=== PATIENT | male | born 1960 | race African-American/Black ===

== ENCOUNTER 2019-08-22 11:16 | Inpatient (IN) ==
[2019-08-22] MEDS ORDERED: ZOFRAN IV PRN (12:40)
[2019-08-22] MEDS ORDERED: TYLENOL PO PRN (12:40)
[2019-08-22] MEDS ORDERED: MORPHINE IV PRN (12:52)
[2019-08-22 13:38] LABS: BASO# 0.03 X1000 (0.0-0.2); BASO% 0.4 % (0.0-0.8); EOS# 0.05 X1000 (0.0-0.7); EOS% 0.6 % (0.0-10.0); HEMATOCRIT 42.9 % (42.0-52.0); HEMOGLOBIN 14.2 g/dL (14.0-18.0); IMM GRAN# 0.02 X1000 (0.0-0.04); IMM GRAN% 0.3 % (0.0-0.5); LYMPH# 2.26 X1000 (1.2-3.4); LYMPH% 28.6 % (20.5-51.1); MCH 33.3 PG (27-31); MCHC 33.1 g/dL (33-37); MCV 100.7 FL (81-99); MONO# 0.84 X1000 (0.11-0.59); MONO% 10.6 % (1.7-9.3); MPV 10.4 FL (7.4-10.4); NEUT# 4.71 X1000 (1.4-6.5); NEUT% 59.5 % (42.2-75.2); PLT 213 X1000 (130-400); RBC 4.26 XMIL (4.7-6.1); RDW 13.8 % (11.5-14.5); WBC 7.91 X1000 (4.8-10.8)
[2019-08-22 13:54] LABS: AGAP 11; ALBUMIN 4.4 g/dL (3.5-5.0); ALKALINE PHOSPHATASE 106 U/L (32-122); BUN 14 mg/dL (8-22); CALCIUM 8.8 mg/dL (8.8-10.2); CHLORIDE 107 mmol/L (98-107); COSMO 282; CREATININE 1.1 mg/dL (0.7-1.2); ESTIMATED GFR > 60; GLUCOSE 103 mg/dL (70-104); GOT 19 U/L (10-34); GPT 20 U/L (10-44); POTASSIUM 4.2 mmol/L (3.5-5.1); SODIUM 141 mmol/L (136-145); TCO2 23 mmol/L (25-35); TOTAL BILIRUBIN 0.29 mg/dL (0.20-1.00); TOTAL PROTEIN 8.9 g/dL (6.3-8.3)
[2019-08-22] MEDS ORDERED: SODIUM CHLORIDE 0.9% INJ SCH (15:00)
--- NOTE | 2019-08-22 16:05 | HISTORY AND PHYSICAL ---
The patient came in for abdominal pain, nausea/vomiting, no bowel movement, possibly some hematochezia. It is really unclear. In any case, he was seen by Francy Muñoz as an outpatient, had abdominal pain, abdomen that was distended and hard with concern over peritoneal signs, and his plain films show possible small bowel obstruction. He was admitted for treatment. Unclear if he has had any abdominal surgeries, except it looks like he has prostate cancer, and he has had radiation therapy and it looks like he may have had urological treatment, as well. In any case, the patient will be admitted, hydrated, antiemetic. We are going to get a CT to evaluate for small bowel obstruction versus other etiology, and we will follow closely. Appreciate referral from Francy Muñoz. This patient was seen in conjunction with Adri Srinivasan. cc: Cj Corado MD
--- NOTE | 2019-08-22 16:49 | Diag Imaging Result Doc PS360 ---
EXAM: CT ABD/PELVIS W/ORAL CONT ONLY HISTORY: sbo TECHNIQUE: CT abdomen and pelvis without intravenous contrast. COMPARISON: None. FINDINGS: The gallbladder has been removed. No focal hepatic abnormality identified on this noncontrasted exam. No splenomegaly. The left hemidiaphragm is elevated. Normal aorta. No inflammation about the pancreas. Normal adrenal glands. Small nonobstructing right lower pole renal stone. Mild to moderately dilated left renal pelvis and calyces. There is a right renal cyst. There are contrast has passed through the small bowel and entered the colon. There is a large amount of stool within the colon. The descending colon is also distended with air. Maximum diameter is 6 cm. The urinary bladder is distended and has thickening to the wall. No abscess. IMPRESSION: 1.Prominent constipation. No bowel obstruction. 2.Cholecystectomy 3.Nonobstructing right renal stone 4.Cystitis 5.Possible left ureteropelvic junction obstruction. This exam was performed using automated exposure control, adjustment of mA or kV according to patient size, and/or use of iterative reconstruction technique. Electronically signed by Kurt Farnsworth 08/22/2019 4:47 PM
[2019-08-22] MEDS: NS 1,000 ML IV SCH (17:02)
[2019-08-22] MEDS: PROTONIX IV SCH (17:02)
--- NOTE | 2019-08-22 18:30 | HISTORY AND PHYSICAL ---
PRIMARY CARE PHYSICIAN: BOB Mota. CHIEF COMPLAINT: Constipation. HISTORY OF PRESENTING ILLNESS: This is a 58-year-old male who resides in a local intermediate due to his intellectual disability. He was seen at his primary care physician's office today after having some hard bowel movements on Tuesday, and also had some bright red blood left on the toilet seat after the hard BM. The patient is only able to answer yes and no questions, but does confirm pain to abdomen with light palpation. He had an x-ray in the primary care physician's office today, and felt to possibly have a small bowel obstruction so he was admitted for further evaluation and treatment. PAST MEDICAL HISTORY: GERD, seizures, and intellectual disability. PAST SURGICAL HISTORY: None. FAMILY HISTORY: Reviewed and noncontributory. SOCIAL HISTORY: Currently, he resides in a local intermediate. Denies any tobacco, alcohol or illicit drug use. ALLERGIES: Penicillin. HOME MEDICATIONS: A current list will need to be obtained, reconciled, reviewed and then restarted as appropriate. We will place an order for nursing to update and confirm home medications. LABORATORY DATA: We are obtaining a CBC and BMP. CT of the abdomen and pelvis with and without contrast. We have consulted General Surgery. We will review those lab results when they have resulted. REVIEW OF SYSTEMS: Denied any fever, chills, blurred vision, dizziness, chest pain or cough. Denied any shortness of breath. He was positive for generalized abdominal pain, constipation, hematochezia, and denied any burning or hurting with urination. PHYSICAL EXAMINATION: On arrival, this is a 58-year-old male who answers yes and no questions appropriately. He does have a caregiver at the bedside, and we reviewed his medical record. HEENT: Normocephalic, atraumatic. Normal ENT inspection. Oropharynx and nares are clear. EYES: Pupils are equal, round, and reactive to light and accommodation. Extraocular movements are intact. NECK: Normal inspection. Normal range of motion. LUNGS: Clear to auscultation bilaterally with equal lung expansion and chest wall movement. HEART: Regular rate and rhythm. No murmurs, rubs, or gallops. ABDOMEN: Firm, distended, and tender to light palpation. Bowel sounds were present x4 quadrants. EXTREMITIES: 5/5 strength x4 extremities. NEUROLOGICAL: The cranial nerves 2-12 appear grossly intact. ASSESSMENT: 1. Generalized abdominal pain. 2. Constipation. 3. Suspected small-bowel obstruction. 4. Intellectual disability. PLAN: He will be admitted to the medical unit. We will hold him NPO. Obtain a CT of the abdomen and pelvis with and without contrast. Obtain his labs. Consult General Surgery. Give him morphine 2 mg IV q.4 hours p.r.n., normal saline at 125 mL an hour, Protonix 40 mg IV q. 24, Zofran 4 mg IV q.4 hours p.r.n. We will update and confirm home medications and restart those when appropriate. Further orders after seen by attending, and by hospice care sales consultant, and reviewing all of his test results. Dictated by BOB Erwin for Cj Corado MD cc: BOB Erwin MD Anna M. Dumas, CRNP
--- NOTE | 2019-08-22 21:12 | GENERAL SURGERY CONSULTATION ---
DATE: 08/22/2019 TIME: 5:05 p.m. Mr. Sifuentes is an institutionalized gentleman, who was seen by Francy Muñoz because of his abdomen being distended. The senior care where he stays is in attendance when I visited with him in the emergency room, and they do not know when he had his last bowel movement. He does eat, and he has had no vomiting. Apparently, he has had a history of prostate cancer treated with radiation in the past. It is not possible to obtain a history from him due to his mental status. CURRENT MEDICATIONS: Upon admission include Tylenol, morphine, Zofran, Protonix. ALLERGIES: Penicillins. SOCIAL HISTORY: He is a resident of an institutional home. He does not smoke or drink alcohol. FAMILY HISTORY: Unknown. REVIEW OF SYSTEMS: Not obtainable because of his poor historical capability. PHYSICAL EXAMINATION: He is afebrile, heart rate 68, blood pressure 151/87. No cervical adenopathy. Bilateral breath sounds. Heart has a regular rate and rhythm. Abdomen is soft and it is nontender. Bowel sounds are quiet. No peripheral edema. He is awake and alert. DIAGNOSTIC STUDIES: White count is 7900, hemoglobin 14.2. Chemistry is okay with a BUN [address] shows a lot of stool in the colon. The small bowel reaches the colon quickly. There is no evidence of small bowel obstruction, but he does have a tortuous colon with stool. INTERPRETATION: Constipation probably related to his institutionalization. There is no evidence of a small bowel obstruction. Would simply recommend a catharsis and attempts to evacuate his colon, and he may have to be on a bowel regimen. cc: Vitor Marquez MD
[2019-08-23] MEDS: LACTULOSE PO SCH ×3 (00:47→22:37)
[2019-08-23] MEDS: MIRALAX PO SCH ×3 (00:49→22:38)
[2019-08-23] MEDS: LEVETIRACETAM 750 MG PO SCH ×3 (00:49→22:37)
[2019-08-23] MEDS: TOPAMAX PO SCH ×3 (00:49→22:36)
[2019-08-23] MEDS: AMITIZA PO SCH ×3 (00:50→22:37)
[2019-08-23] MEDS: COMBIGAN OPHTH SOLN BOTH EYES SCH ×3 (00:50→22:37)
[2019-08-23] MEDS: LUMIGAN 0.01% OPH SOLUTION BOTH EYES SCH ×2 (00:50→22:37)
[2019-08-23] MEDS: FLOMAX PO SCH ×3 (00:51→22:36)
[2019-08-23] MEDS: NS 1,000 ML IV SCH ×4 (00:51→21:48)
[2019-08-23 06:48] LABS: URINE SOURCE CATH
[2019-08-23 07:09] LABS: BILIRUBIN URINE NEGATIVE (NEGATIVE); BLOOD URINE NEGATIVE (NEGATIVE); COLOR YELLOW; GLUCOSE URINE NEGATIVE (NEGATIVE); KETONE URINE NEGATIVE (NEGATIVE); LEUKOCYTES URINE MODERATE (NEGATIVE); NITRITE URINE NEGATIVE (NEGATIVE); PH URINE 7.5; PROTEIN URINE TRACE mg/dL (NEGATIVE); SP GRAVITY URINE 1.013; TURBIDITY URINE HAZY (CLEAR); UR EPITHELIAL CELLS <10 /HPF (<10); URINE BACTERIA 3+ /HPF; URINE RBC <10 /HPF (<10); URINE WBC TNTC /HPF (<10); UROBILINOGEN URINE NORMAL (NORMAL)
[2019-08-23 08:06] LABS: BASO# 0.01 X1000 (0.0-0.2); BASO% 0.2 % (0.0-0.8); EOS# 0.05 X1000 (0.0-0.7); EOS% 0.9 % (0.0-10.0); HEMATOCRIT 41.7 % (42.0-52.0); HEMOGLOBIN 13.7 g/dL (14.0-18.0); LYMPH# 1.33 X1000 (1.2-3.4); LYMPH% 24.5 % (20.5-51.1); MCHC 32.9 g/dL (33-37); MCV 100.5 FL (81-99); MONO# 0.56 X1000 (0.11-0.59); MONO% 10.3 % (1.7-9.3); MPV 10.4 FL (7.4-10.4); NEUT# 3.47 X1000 (1.4-6.5); NEUT% 64.1 % (42.2-75.2); PLT 196 X1000 (130-400); RBC 4.15 XMIL (4.7-6.1); RDW 13.4 % (11.5-14.5); WBC 5.42 X1000 (4.8-10.8)
[2019-08-23 08:49] LABS: AGAP 11; BUN 10 mg/dL (8-22); CALCIUM 8.6 mg/dL (8.8-10.2); CHLORIDE 112 mmol/L (98-107); COSMO 280; CREATININE 0.9 mg/dL (0.7-1.2); ESTIMATED GFR > 60; GLUCOSE 97 mg/dL (70-104); MAGNESIUM 1.9 mg/dL (1.5-2.7); POTASSIUM 3.6 mmol/L (3.5-5.1); SODIUM 141 mmol/L (136-145); TCO2 18 mmol/L (25-35)
[2019-08-23] MEDS ORDERED: PRILOSEC PO SCH (09:00)
--- NOTE | 2019-08-23 09:05 | Diag Imaging Result Doc PS360 ---
EXAM: CT RENAL STONE SEARCH INDICATION: stone search TECHNIQUE: This exam was performed using automated exposure control, adjustment of mA or kV according to patient size, and/or use of iterative reconstruction technique. COMPARISON: 08/22/2019 FINDINGS: There is subsegmental atelectasis at the lung bases similar to the previous study. There is stable elevation of the left hemidiaphragm. There has been a prior cholecystectomy. There are bilateral nonobstructing intrarenal stones that are stable as compared to the previous study. There is dilation of the left renal pelvis and left renal collecting system that is unchanged. This is of unknown acuity and may be due to chronic UPJ obstruction. There has been interval placement of a Payton catheter. There is still significant urinary bladder wall thickening suggesting cystitis or perhaps trabecular thickening related to a previous enlarged prostate. Note that there has been a prior prostatectomy. There is worsening constipation with an increase in stool in the rectum and distal sigmoid colon as compared to the previous study. Colonic distention is similar to the previous study. The remainder of the solid viscera of the abdomen and pelvis and the remainder of the GI tract are essentially stable as compared to the very recent prior study. IMPRESSION: 1.Worsening constipation. 2.Nonobstructive nephrolithiasis and stable dilation of the left renal collecting system. Consider chronic UPJ obstruction. 3.Stable urinary bladder wall diffuse thickening indicating cystitis or chronic trabecular thickening. 4.The remainder of the abdomen and pelvis is essentially stable as compared to the previous study. Electronically signed by Scott Mcdaniel 08/23/2019 9:03 AM
[2019-08-23] MEDS: TEGRETOL XR PO SCH (11:09)
[2019-08-23] MEDS: FOLIC ACID PO SCH (11:10)
[2019-08-23] MEDS: TENORMIN PO SCH (11:11)
[2019-08-23] MEDS: SYNTHROID PO SCH (11:11)
[2019-08-23] MEDS: CALTRATE 600 + D PO SCH (11:11)
[2019-08-23] MEDS ORDERED: SEPTRA DS PO ONE (15:36)
[2019-08-23] MEDS ORDERED: CITRATE OF MAGNESIA PO ONE (15:37)
[2019-08-23] MEDS: PROSCAR PO SCH (17:07)
[2019-08-23] MEDS: PROTONIX IV SCH (17:08)
--- NOTE | 2019-08-23 19:43 | PROGRESS NOTE ---
DATE: 08/23/2019 SUBJECTIVE: Patient has no major complaints. OBJECTIVE: Vital Signs: Blood pressure is 142/92, heart rate of 75, respiratory rate of 18, temperature 98, 100% on room air. Cardiovascular: Regular rate and rhythm. Pulmonary: Bilateral breath sounds, clear to auscultation. GI: Soft, nontender, nondistended. Bowel sounds are positive. LABORATORY DATA: White count 5, hemoglobin and hematocrit 13 and 41, platelets 196. Basic was normal. UA showed try-amazwwya-xv-count white blood cells and less than 10 squames and 3+ bacteria. CT just showed what looks like he has chronic bladder urinary retention. PROBLEM LIST: 1. Severe constipation. We will continue bowel regimen. The CT apparently shows that his bowels are not moving as much, so we will continue medications and follow closely. 2. Intellectual impairment, seizure disorder. We will continue Keppra and follow. 3. Urinary tract infection. We will initiate empiric antibiotics and follow closely. DISPOSITION: Anticipate discharge, hopefully soon in the next 24 hours. With his chronic UPJ obstruction, I will get a urology evaluation, and we will continue to follow. cc: Cj Corado MD
[2019-08-23] MEDS: SEPTRA DS PO SCH (22:36)
--- NOTE | 2019-08-23 22:54 | CONSULTATION ---
DATE OF CONSULTATION: 08/23/2019 ATTENDING AND REFERRING PHYSICIAN: Hospitalist. CHIEF COMPLAINT: Abdominal pain. HISTORY OF PRESENT ILLNESS: This 58-year-old male was admitted with constipation and abdominal pain. A CT scan obtained revealed chronic left ureteropelvic junction obstruction. The patient has a history of prostate cancer and underwent radiation therapy in 2011. His PSA has been under control since then, and was 0.39 in 01/2019. The patient lives in a intermediate for mental disability, and his tube pusher states he was just having abdominal pain and there is no history of kidney problems. His creatinine was well within the normal limits of 0.9. PAST MEDICAL HISTORY: As noted in the HPI. Seizure disorder, gastroesophageal reflux disease. PAST SURGICAL HISTORY: Transrectal prostate ultrasound and biopsies, radiation therapy for prostate cancer. SOCIAL HISTORY: He lives in a intermediate. No tobacco or alcohol use. ALLERGIES: He is allergic to penicillin. REVIEW OF SYSTEMS: The patient will answer yes/no questions, and he indicates his stomach hurts. According to the tube pusher there were no fevers, chills, shortness of breath, diabetes or heart disease. PHYSICAL EXAMINATION: General: A normally developed, well-nourished, age-apparent black male, oriented somewhat and cooperative. HEENT: Normal for age. Lungs clear. Cardiovascular: Regular rate and rhythm. Abdomen distended, soft. Normal bowel sounds but diffuse tenderness. No guarding or rebound. : Normal male. Both testes down. Rectal exam is deferred. Extremities: No clubbing, cyanosis or edema. Neurologic: No focal deficits. LABORATORY DATA: White count of 5.42, hemoglobin 13.7, hematocrit of 41.7 and platelets are 196,000. Serum electrolytes have a sodium of 141, potassium 3.6, chloride 112, bicarbonate 18, BUN 10, creatinine 0.9. A urinalysis had bkw-ewtwtvxh-sm-count white cells, 3+ bacteria. His urine culture is pending. IMPRESSION: 1. Prostate cancer, status post radiation therapy with stable PSA. 2. Constipation with abdominal pains. 3. Probable urinary tract infection. 4. Chronic left ureteropelvic junction obstruction versus left extrarenal pelvis, with normal renal parenchyma, no caliectasis and normal renal function. RECOMMENDATIONS: 1. Recommend to treat urinary tract infection as is being done. 2. Keep scheduled appointment in 01/2020 for prostate cancer check. 3. Since his renal function is normal, would not recommend any further evaluation of the left kidney unless the function deteriorates or he develops left flank pain. Thank you for this consultation. cc: Fede Jin MD
[2019-08-24] MEDS: NS 1,000 ML IV SCH (06:32)
[2019-08-24] MEDS: LOVENOX SUBQ SCH (07:05)
[2019-08-24 08:21] LABS: AGAP 13; BUN 8 mg/dL (8-22); CALCIUM 7.7 mg/dL (8.8-10.2); CHLORIDE 112 mmol/L (98-107); COSMO 281; ESTIMATED GFR > 60; GLUCOSE 93 mg/dL (70-104); POTASSIUM 3.4 mmol/L (3.5-5.1); SODIUM 142 mmol/L (136-145); TCO2 17 mmol/L (25-35)
[2019-08-24 08:24] LABS: BASO# 0.02 X1000 (0.0-0.2); BASO% 0.3 % (0.0-0.8); EOS# 0.01 X1000 (0.0-0.7); EOS% 0.2 % (0.0-10.0); HEMATOCRIT 34.5 % (42.0-52.0); HEMOGLOBIN 11.3 g/dL (14.0-18.0); LYMPH% 18.2 % (20.5-51.1); MCH 32.9 PG (27-31); MCHC 32.8 g/dL (33-37); MCV 100.6 FL (81-99); MONO# 0.63 X1000 (0.11-0.59); MONO% 9.6 % (1.7-9.3); MPV 10.6 FL (7.4-10.4); NEUT# 4.72 X1000 (1.4-6.5); NEUT% 71.7 % (42.2-75.2); PLT 176 X1000 (130-400); RBC 3.43 XMIL (4.7-6.1); RDW 13.2 % (11.5-14.5); WBC 6.58 X1000 (4.8-10.8)
[2019-08-24] MEDS: MIRALAX PO SCH ×2 (10:50→18:38)
[2019-08-24] MEDS: LACTULOSE PO SCH ×2 (10:50→18:38)
[2019-08-24] MEDS: FOLIC ACID PO SCH (10:54)
[2019-08-24] MEDS: CALTRATE 600 + D PO SCH (10:54)
[2019-08-24] MEDS: TOPAMAX PO SCH ×2 (10:54→21:51)
[2019-08-24] MEDS: TENORMIN PO SCH (10:54)
[2019-08-24] MEDS: SEPTRA DS PO SCH ×2 (10:54→21:51)
[2019-08-24] MEDS: COMBIGAN OPHTH SOLN BOTH EYES SCH ×2 (10:55→21:45)
[2019-08-24] MEDS: SYNTHROID PO SCH (10:55)
[2019-08-24] MEDS: FLOMAX PO SCH ×2 (10:55→21:45)
[2019-08-24] MEDS: AMITIZA PO SCH ×2 (10:55→21:45)
[2019-08-24] MEDS: PROSCAR PO SCH (10:55)
[2019-08-24] MEDS: LEVETIRACETAM 750 MG PO SCH ×2 (10:56→21:46)
[2019-08-24] MEDS: TEGRETOL XR PO SCH (10:56)
--- NOTE | 2019-08-24 12:01 | Diag Imaging Result Doc PS360 ---
EXAM: ABDOMEN FLAT/UPRIGHT HISTORY: constipation TECHNIQUE: Two views COMPARISON: CT from 08/23/2019 FINDINGS: Prominent air distended loops of bowel measuring up to 14 cm in the mid abdomen. There is air and stool within the colon. No organomegaly. The gallbladder has been removed. IMPRESSION: There is less stool within the colon on the current exam although a portion of the colon is distended up to 14 cm. Electronically signed by Kurt Farnsworth 08/24/2019 11:59 AM
[2019-08-24] MEDS ORDERED: NS 1,000 ML IV ONE (17:15)
--- NOTE | 2019-08-24 18:09 | PROGRESS NOTE ---
DATE: 08/24/2019 SUBJECTIVE: Patient has no major complaints. He is having a lot of diarrhea or at least several bowel movements. OBJECTIVE: Blood pressure is 126/76, heart rate 77, respiratory rate of 16, temperature was 98.3 degrees.Cardiovascular: Regular rate and rhythm. Pulmonary: Bilateral breath sounds clear to auscultation. Gastrointestinal: Abdomen soft, nontender, nondistended. Bowel sounds are positive. LABORATORY DATA: 1. White count 6, hemoglobin and hematocrit 11 and 34, platelets of 176,000. Potassium 3.4. B12 and folate are normal. Urine cultures no growth. KUB still shows stool. 2. Severe constipation, early ileus. We will continue bowel regimen and follow. 3. Seizure disorder. We will continue Keppra. 4. Urinary tract infection, currently on antibiotics with Bactrim. DISPOSITION: I think if he stabilizes, anticipate discharge soon possibly in next 24 hours. cc: Cj Corado MD
[2019-08-24] MEDS: LUMIGAN 0.01% OPH SOLUTION BOTH EYES SCH (21:52)
[2019-08-25] MEDS: PRILOSEC PO SCH (06:36)
[2019-08-25] MEDS: LOVENOX SUBQ SCH (06:36)
[2019-08-25 07:43] LABS: BASO# 0.02 X1000 (0.0-0.2); BASO% 0.3 % (0.0-0.8); EOS# 0.06 X1000 (0.0-0.7); EOS% 0.9 % (0.0-10.0); HEMATOCRIT 38.2 % (42.0-52.0); HEMOGLOBIN 12.8 g/dL (14.0-18.0); LYMPH# 1.36 X1000 (1.2-3.4); LYMPH% 21.3 % (20.5-51.1); MCH 33.2 PG (27-31); MCHC 33.5 g/dL (33-37); MCV 99.2 FL (81-99); MONO# 1.07 X1000 (0.11-0.59); MONO% 16.8 % (1.7-9.3); MPV 10.3 FL (7.4-10.4); NEUT# 3.87 X1000 (1.4-6.5); NEUT% 60.7 % (42.2-75.2); PLT 186 X1000 (130-400); RBC 3.85 XMIL (4.7-6.1); RDW 13.4 % (11.5-14.5); WBC 6.38 X1000 (4.8-10.8)
[2019-08-25 08:06] LABS: AGAP 10; BUN 9 mg/dL (8-22); CALCIUM 8.4 mg/dL (8.8-10.2); CHLORIDE 111 mmol/L (98-107); COSMO 278; CREATININE 1.2 mg/dL (0.7-1.2); ESTIMATED GFR > 60; GLUCOSE 100 mg/dL (70-104); POTASSIUM 3.6 mmol/L (3.5-5.1); SODIUM 140 mmol/L (136-145); TCO2 19 mmol/L (25-35)
[2019-08-25] MEDS: COMBIGAN OPHTH SOLN BOTH EYES SCH ×2 (10:04→20:31)
[2019-08-25] MEDS: MIRALAX PO SCH ×3 (10:04→20:33)
[2019-08-25] MEDS: LACTULOSE PO SCH ×3 (10:04→20:32)
[2019-08-25] MEDS: CALTRATE 600 + D PO SCH (10:04)
[2019-08-25] MEDS: TENORMIN PO SCH (10:04)
[2019-08-25] MEDS: TEGRETOL XR PO SCH (10:04)
[2019-08-25] MEDS: PROSCAR PO SCH (10:05)
[2019-08-25] MEDS: SEPTRA DS PO SCH ×2 (10:05→20:32)
[2019-08-25] MEDS: TOPAMAX PO SCH ×2 (10:05→20:32)
[2019-08-25] MEDS: LEVETIRACETAM 750 MG PO SCH ×2 (10:05→20:31)
[2019-08-25] MEDS: AMITIZA PO SCH ×2 (10:06→20:32)
[2019-08-25] MEDS: SYNTHROID PO SCH (10:06)
[2019-08-25] MEDS: FOLIC ACID PO SCH (10:06)
[2019-08-25] MEDS: FLOMAX PO SCH ×2 (10:06→20:32)
--- NOTE | 2019-08-25 16:30 | PROGRESS NOTE ---
DATE: 08/25/2019 SUBJECTIVE: The patient has no major complaints. He is coughing a bit though. OBJECTIVE: 111/73, heart rate 69, respiratory 16, temperature 98.2 degrees, 97% on room air.Cardiovascular: Regular rate and rhythm. Pulmonary: Bilateral breath sounds clear to auscultation. GI: Soft, nontender, nondistended. Bowel sounds are positive. LABORATORY DATA: White count 6, hemoglobin and hematocrit 12 and 38, platelets 186,000. Basic was normal. PROBLEM LIST: 1. Severe constipation, ileus. Will continue bowel regimen and follow closely. We are working on trying to clear him out. 2. Urinary tract infection. He is currently on Bactrim and stable. 3. Moderate intellectual impairment at baseline. We will continue to monitor. 4. Seizure disorder is controlled currently on Keppra. DISPOSITION: I think if his plain films look stable tomorrow, anticipate discharge tomorrow. cc: Cj Corado MD
[2019-08-25] MEDS: LUMIGAN 0.01% OPH SOLUTION BOTH EYES SCH (20:31)
[2019-08-26] MEDS: PRILOSEC PO SCH (06:03)
[2019-08-26] MEDS: LOVENOX SUBQ SCH (06:03)
--- NOTE | 2019-08-26 08:43 | Diag Imaging Result Doc PS360 ---
EXAM: FLAT/UPRIGHT ABD/1 VIEW CHEST 08/26/2019 HISTORY: ileus TECHNIQUE: AP upright chest and flat and upright abdomen COMMENT: Compared to 08/24/2019 there is much less gaseous dilatation of the colon, particularly the distal colon. There is still some stool in the rectum. The left hemidiaphragm remains elevated, as it was on 11/26/2013. There is dextrocardia. Overall the appearance of the chest has not changed significantly since 2013. IMPRESSION: Improved colonic ileus and constipation. Electronically signed by Juan Harper 08/26/2019 8:41 AM
[2019-08-26] MEDS: LACTULOSE PO SCH ×3 (10:12→21:11)
[2019-08-26] MEDS: PROSCAR PO SCH (10:13)
[2019-08-26] MEDS: FLOMAX PO SCH ×2 (10:13→21:12)
[2019-08-26] MEDS: MIRALAX PO SCH ×3 (10:13→21:11)
[2019-08-26] MEDS: AMITIZA PO SCH ×2 (10:14→21:12)
[2019-08-26] MEDS: TEGRETOL XR PO SCH (10:14)
[2019-08-26] MEDS: CALTRATE 600 + D PO SCH (10:14)
[2019-08-26] MEDS: SEPTRA DS PO SCH (10:14)
[2019-08-26] MEDS: TOPAMAX PO SCH ×2 (10:14→21:12)
[2019-08-26] MEDS: TENORMIN PO SCH (10:14)
[2019-08-26] MEDS: SYNTHROID PO SCH (10:15)
[2019-08-26] MEDS: LEVETIRACETAM 750 MG PO SCH ×2 (10:15→21:12)
[2019-08-26] MEDS: COMBIGAN OPHTH SOLN BOTH EYES SCH ×2 (10:15→21:11)
[2019-08-26] MEDS: FOLIC ACID PO SCH (10:15)
[2019-08-26] MEDS: ZYVOX PO SCH ×2 (15:18→21:12)
--- NOTE | 2019-08-26 16:13 | PROGRESS NOTE ---
DATE: 08/26/2019 SUBJECTIVE: Patient has no major complaints. OBJECTIVE: Vitals: Blood pressure 131/90, heart rate of 75, respiratory rate 18, temperature 98.8 degrees. Cardiovascular: Regular rate and rhythm. Pulmonary: Bilateral breath sounds clear to auscultation. GI: Soft, nontender, nondistended. Bowel sounds are positive. LABORATORY DATA: White count 6, hemoglobin and hematocrit 12 and 38, platelets 186,000. Basic was normal. PROBLEM LIST: 1. Severe constipation. His x-ray looks much improved. He is having regular bowel movements. We will continue his treatments and work on a bowel regimen at home, which may involve daily or twice a day lactulose. 2. Gram-positive cocci urinary tract infection. I switched him to Zyvox anticipating this is likely enterococcus, but we will follow up on culture results tomorrow. 3. Seizure disorder. He has a stable currently on Keppra. Avoid fluoroquinolones. 4. Urinary retention. He is seen by Dr. Jin. I will discuss with him about the Payton, whether that needs to be maintained. We will see how things go tomorrow. Anticipate discharge tomorrow. cc: Cj Corado MD
[2019-08-26] MEDS: LUMIGAN 0.01% OPH SOLUTION BOTH EYES SCH (21:12)
[2019-08-27] MEDS: LOVENOX SUBQ SCH (05:27)
[2019-08-27] MEDS: PRILOSEC PO SCH (06:36)
[2019-08-27] MEDS: TOPAMAX PO SCH (08:55)
[2019-08-27] MEDS: AMITIZA PO SCH (08:56)
[2019-08-27] MEDS: TEGRETOL XR PO SCH (08:56)
[2019-08-27] MEDS: FLOMAX PO SCH (08:56)
[2019-08-27] MEDS: FOLIC ACID PO SCH (08:57)
[2019-08-27] MEDS: ZYVOX PO SCH (08:57)
[2019-08-27] MEDS: LACTULOSE PO SCH (08:58)
[2019-08-27] MEDS: PROSCAR PO SCH (08:58)
[2019-08-27] MEDS: TENORMIN PO SCH (08:59)
[2019-08-27] MEDS: CALTRATE 600 + D PO SCH (08:59)
[2019-08-27] MEDS: SYNTHROID PO SCH (08:59)
[2019-08-27] MEDS: COMBIGAN OPHTH SOLN BOTH EYES SCH (08:59)
[2019-08-27] MEDS: MIRALAX PO SCH (09:01)
[2019-08-27] MEDS: LEVETIRACETAM 750 MG PO SCH (09:02)
[2019-08-27 12:37] VITALS: BP 109/83
[2019-08-27] MEDS ORDERED: FLU VACCINE IM ONE (12:47)
--- NOTE | 2019-09-16 23:34 | DISCHARGE SUMMARY ---
ADMISSION DATE: 08/22/2019 DISCHARGE DATE: 08/26/2019 CONSULTATIONS: None. DISCHARGE DIAGNOSES: 1. Severe constipation. 2. Enterococcus faecalis urinary tract infection. 3. Seizure disorder. 4. Urinary retention. SUMMARY: Briefly, the patient was admitted on the with nausea, vomiting, abdominal pain. There was concern over possible abdominal pain. Admitted directly per Francy Muñoz. There was concern over small bowel obstruction. General Surgery was consulted and felt that conservative measures would be okay and continue treatment of constipation. Renal colic CT was obtained which showed constipation, nephrolithiasis with chronic UPJ obstruction, bladder wall dilation. He seemed to improve. Dr. Jin was consulted who has seen him in the past for prostatectomy related to prostate cancer and did not have any major recommendations except to treat the UTI. The patient slowly improved with treatment. He was placed on Bactrim which was effective based on sensitivities, I guess, but in any case patient continued to improve. Bowel regimen was stable. On the , he was felt stable for discharge. I did switch him to Zyvox based on the fact that I was concerned about enterococcus. DISCHARGE MEDICATIONS: Amitiza 24 mcg b.i.d., Caltrate 600 daily, carbamazepine ER 400 daily, Combigan drops 1 drop b.i.d., Flomax 0.4 b.i.d., folic acid 0.4 daily, Fosamax 35 weekly, Keppra 750 b.i.d., Lumigan 2.5 daily, Vit D 200 daily, Synthroid 100 daily, atenolol 50 daily, topiramate 200 b.i.d., linezolid 600 q.12 for 7 days, lactulose 30 b.i.d. and MiraLAX 17 daily. DISCHARGE CONDITION: Stable. FOLLOW UP: With Francy Muñoz in 1 to 2 weeks. cc: MD CLARA Spicer
== END 2019-08-27 15:45 | disposition home or self-care (01) | DRG 392 ==
LOC: DIRADM 11:16 → EDIPHOLD 12:14 → 3N 18:37
PROVIDERS: ATTEND Internal Medicine